=== PATIENT | female | born 2000 | race Caucasian/White ===

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

== ENCOUNTER 2018-03-13 11:02 | Emergency (ER) | payer MEDICAID, OTHER ==
[2018-03-13] MEDS ORDERED: METHYLPREDNISOLONE INJ 125 MG/2 ML SDV IV ONE (11:24)
[2018-03-13] MEDS ORDERED: DIPHENHYDRAMINE HCL 50 MG/ML VIAL IV ONE (11:24)
[2018-03-13] MEDS ORDERED: FAMOTIDINE INJ/PF 20 MG/2 ML SDV IV ONE ×2 (11:24→14:13)
[2018-03-13] MEDS ORDERED: EPINEPHRINE INJ/PF 1 MG/1 ML AMPULE IM ONE (11:25)
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
--- NOTE | 2018-03-13 14:05 | ER Document Report ---
ED General - General Mode of Arrival: Ambulatory Information source: Patient TRAVEL OUTSIDE OF THE [place] IN LAST 30 DAYS: No - General Chief Complaint: Hives Stated Complaint: RASH Time Seen by Provider: 03/13/18 11:18 Notes: Patient is a 17-year-old female presents to the emergency department complaining of hives after being bitten by a bug last night. Patient states she was at work when she noticed 2 bug bites on her bilateral hips. She states when she got home a few hours later she noticed that she broke out into hives around her waist band. Patient states that her lips, tongue and throat began to swell. At bedside patient states the hives do not itch but are still a little painful. Patient states she took Ibuprofen with little relief. Patients LMP was the 1st week in February. 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 According to records patient received a 6 day taper dose to of Prednisone 10 mg on February 25, 2018. 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 Family History: Reviewed & Not Pertinent Patient has suicidal ideation: No Patient has homicidal ideation: No Pulmonary Medical History: Reports: Hx Asthma Psychiatric Medical History: Reports: Hx Depression Past Surgical History: Reports: Hx Orthopedic Surgery - right knee due to Plica Syndrome - Immunizations Immunizations up to date: Yes Hx Diphtheria, Pertussis, Tetanus Vaccination: Yes Review of Systems - Review of Systems Constitutional: No symptoms reported EENT: See HPI Cardiovascular: No symptoms reported Respiratory: No symptoms reported Gastrointestinal: No symptoms reported Genitourinary: No symptoms reported Female Genitourinary: No symptoms reported Musculoskeletal: See HPI Skin: No symptoms reported Hematologic/Lymphatic: No symptoms reported Neurological/Psychological: No symptoms reported Physical Exam - General General appearance: Appears well, Alert In distress: None - HEENT Head: Normocephalic, Other - Forehead appears swollen. Eyes: Normal Conjunctiva: Normal Extraocular movements intact: Yes Pupils: PERRL Neck: Normal - Respiratory Respiratory status: No respiratory distress Chest status: Nontender Breath sounds: Normal Chest palpation: Normal - Cardiovascular Rhythm: Regular Heart sounds: Normal auscultation Murmur: No Friction rub: No Gallop: None auscultated - Abdominal Inspection: Normal - Back Back: Normal - Extremities General upper extremity: Normal ROM General lower extremity: Normal ROM - Neurological Neuro grossly intact: Yes Cognition: Normal Orientation: AAOx4 [place] Coma Scale Eye Opening: Spontaneous Ela Coma Scale Verbal: Oriented Ela Coma Scale Motor: Obeys Commands [place] Coma Scale Total: 15 Speech: Normal - Psychological Associated symptoms: Normal affect, Normal mood - Skin Skin Temperature: Warm Skin Moisture: Dry Skin Color: Normal Skin irregularity: other - Hives located over the bilateral hips and lower back which is tender to palpation. - Vital signs Vitals: Temp Pulse Resp BP Pulse Ox 97.6 F 77 14 122/69 99 03/13/18 11:06 03/13/18 11:06 03/13/18 11:06 03/13/18 11:06 03/13/18 11:06 - Vital Signs Vital signs: Temp Pulse Resp BP Pulse Ox 97.6 F 77 14 122/69 99 03/13/18 11:06 03/13/18 11:06 03/13/18 11:06 03/13/18 11:06 03/13/18 11:06 Discharge - Discharge Clinical Impression: Urticaria Condition: Stable Disposition: HOME, SELF-CARE Additional Instructions: Acute Allergic Reaction Your symptoms are due to an allergic reaction. Allergy can cause hives, swelling of the hands, feet, and face, hoarseness, and difficulty swallowing or breathing. It may be due to exposure to medication, animal dander, foods, infection, or insect bites. Medication is a common cause, even when prior use of this same medication caused no problems. Acute treatment may include adrenalin and antihistamines. Usually, the specific allergic agent can't be identified unless repeated episodes occur. Home treatment includes the following: (1) Stop any suspicious medications. This will be discussed with you. (2) Oral antihistamines for the next four to five days. Example, diphenhydramine (Benadryl) every four hours. (3) You may also use cimetidine (Tagamet), ranitidine (Zantac), or famotidine (Pepcid) every four hours if diphenhydramine is not controlling itching and hives. (4) Avoid aspirin until the hives completely disappear. (5) Avoid hot baths or showers until the hives are completely gone. Call the doctor if faintness, difficulty swallowing, tightness in the chest, or wheezing occurs. RETURN TO THE EMERGENCY ROOM IF ANY NEW OR WORSENING SYMPTOMS. Scribe Attestation: 03/13/18 14:21 I personally performed the services described in the documentation, reviewed and edited the documentation which was dictated to the scribe in my presence, and it accurately records my words and actions. (FERN PATRICK) Scribe Documentation - Scribe Written by Steven:: Steven Urbina, 03/13/2018 14:10 acting as scribe for :: Lucy
[2018-03-13 16:10] VITALS: BP 102/74
== END 2018-03-13 16:10 | disposition home or self-care (01) ==
LOC: ER 11:02
DX: L50.9 Urticaria, unspecified (principal); S70.262A Insect bite (nonvenomous), left hip, initial encounter; S70.261A Insect bite (nonvenomous), right hip, initial encounter; W57.XXXA Bitten or stung by nonvenomous insect and other nonvenomous arthropods, initial encounter; M67.51 Plica syndrome, right knee; J45.909 Unspecified asthma, uncomplicated; F17.210 Nicotine dependence, cigarettes, uncomplicated
CPT/HCPCS: 96376; 99283; 96372; 96374; 96375; J1200; J0171; J2930; S0028

== ENCOUNTER 2018-03-24 13:27 | Emergency (ER) | payer OTHER ==
[2018-03-24 13:37] VITALS: BP 120/67
--- NOTE | 2018-03-24 13:48 | ER Document Report ---
HPI - HPI Patient complains to provider of: Exposure to chlamydia Onset: Other Pain Level: 1 Context: 17-year-old female was told by sexual partner that he was positive for chlamydia. She has had 2 menses this month. No history of STD. No condom use. 8-month-old. No dysuria or rashes. Associated Symptoms: None Exacerbated by: Denies Relieved by: Denies Similar symptoms previously: No Recently seen / treated by doctor: No - ROS ROS below otherwise negative: Yes Systems Reviewed and Negative: Yes All other systems reviewed and negative - REPRODUCTIVE Reproductive: REPORTS: : Past Medical History - General Information source: Patient - Social History Smoking Status: Current Every Day Smoker Frequency of alcohol use: None Drug Abuse: None Lives with: Family Family History: Reviewed & Not Pertinent Pulmonary Medical History: Reports: Hx Asthma Renal/ Medical History: Denies: Hx Peritoneal Dialysis Psychiatric Medical History: Reports: Hx Depression Past Surgical History: Reports: Hx Orthopedic Surgery - 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 IN LAST 30 DAYS: No - NECK Neck: Supple - GI/ABDOMEN Gastrointestinal: Abdomen Soft, Abdomen Non-Tender, No Organomegaly - MUSCULOSKELETAL/EXTREMETIES Musculoskeletal/Extremeties: MAEW - NEURO Level of Consciousness: Awake - DERM Integumentary: No Rash Course - Re-evaluation Re-evalutation: 03/24/18 14:47 test is negative. No trichomonas. Treated for gonorrhea and chlamydia. Will treat for bacterial vaginosis are 3+ bacteria and 3+ epi is on the wet prep. No urinary tract infection. - Vital Signs Vital signs: Temp Pulse Resp BP Pulse Ox 98.6 F 100 H 16 120/67 98 03/24/18 13:36 03/24/18 13:36 03/24/18 13:36 03/24/18 13:36 03/24/18 13:36 Discharge - Discharge Clinical Impression: Chlamydia exposure, Bacterial vaginosis Condition: Good Disposition: HOME, SELF-CARE Instructions: Vaginosis, Bacterial ([facility]), Rocephin ([facility]), Azithromycin ([facility]), Metronidazole ([facility]), Gonorrhea ([facility]), Chlamydia ([facility]) Additional Instructions: Call me in 3 hours for the STD culture results at [phone] Metronidazole twice a day for bacterial vaginosis Do not drink alcohol when taking the metronidazole Return to the emergency room any concerns Prescriptions: Metronidazole 500 mg PO BID #14 tablet Forms: Return to Work
[2018-03-24] MEDS ORDERED: LIDOCAINE 1% INJ-PF (10 MG/ML) 30 ML SDV INJ ONE (14:01)
[2018-03-24] MEDS ORDERED: CEFTRIAXONE INJ 250 MG VIAL IM ONE (14:01)
[2018-03-24] MEDS ORDERED: AZITHROMYCIN 250 MG TABLET PO ONE (14:02)
[2018-03-24] MEDS ORDERED: ONDANSETRON 4 MG TAB.RAPDIS PO ONE (14:02)
[2018-03-24 14:34] LABS: APPEARANCE,URINE CLEAR; BILIRUBIN,URINE NEGATIVE (NEGATIVE); COLOR,URINE YELLOW; GLUCOSE, URINE NEGATIVE (NEGATIVE); KETONES,URINE NEGATIVE (NEGATIVE); LEUKOCYTE ESTERASE,URINE NEGATIVE (NEGATIVE); NITRITE,URINE NEGATIVE (NEGATIVE); PROTEIN,URINE NEGATIVE (NEGATIVE); UROBILINOGEN,URINE NEGATIVE mg/dL (<2.0)
[2018-03-24 14:44] LABS: T.VAGINALIS (WET MOUNT) NO TRICHOMONAS SEEN; WBCS (WET MOUNT) NO WBCS SEEN; YEAST (WET MOUNT) NO YEAST SEEN
[2018-03-24 14:45] LABS: BACTERIA (WET MOUNT) 3+ BACTERIA SEEN; EPITHELIALS (WET MOUNT) 3+ EPITHELIALS SEEN
[2018-03-24 15:53] LABS: CHLAM PCR DETECTED (NOT DETECT); GON PCR NOT DETECTED (NOT DETECT)
== END 2018-03-24 15:02 | disposition home or self-care (01) ==
LOC: ER 13:27
DX: Z20.2 Contact with and (suspected) exposure to infections with a predominantly sexual mode of transmission (principal); N76.0 Acute vaginitis; B96.89 Other specified bacterial agents as the cause of diseases classified elsewhere; F17.200 Nicotine dependence, unspecified, uncomplicated
CPT/HCPCS: 99283; 96372; 87210; 81025; 81001; 87491; 87591; S0119; J3490; J0696

== ENCOUNTER 2019-02-14 18:06 | Emergency (ER) | payer OTHER ==
--- NOTE | 2019-02-14 18:57 | ER Document Report ---
ED Headache - General Chief Complaint: Nausea/Vomiting Stated Complaint: MIGRAINE SYMPTOMS Time Seen by Provider: 02/14/19 18:47 Mode of Arrival: Ambulatory Information source: Patient TRAVEL OUTSIDE OF THE [place] IN LAST 30 DAYS: No - HPI Patient complains to provider of: Headache Notes: Patient here with complaints of intermittent headaches. The patient has a long history of migraines and states that she is been having some migraines when she is at work. She denies any headache now. She states when she has a migraine she has nausea vomiting. She states that she quit taking her chronic migraine medicine because she thought she might be . States she is intermittently had some vomiting as well. She denies any abdominal pain at this time. She states that last time she had any sort of vaginal bleeding was November 28 but was only for 1 day. She took a test a month ago that was negative but has not taken any since. She denies any blurred or loss vision at this time. No unilateral numbness, tingling, weakness. No head injury. No fevers. No neck stiffness. No chest pain or shortness of breath at this time. No other specific complaints at this time. - Related Data Allergies/Adverse Reactions: No Known Allergies Allergy (Verified 02/14/19 18:07) Past Medical History - Social History Smoking Status: Current Every Day Smoker Family History: Reviewed & Not Pertinent Patient has suicidal ideation: No Patient has homicidal ideation: No Pulmonary Medical History: Reports: Hx Asthma Renal/ Medical History: Denies: Hx Peritoneal Dialysis Psychiatric Medical History: Reports: Hx Depression Past Surgical History: Reports: Hx Orthopedic Surgery - both knees - Immunizations Immunizations up to date: Yes Hx Diphtheria, Pertussis, Tetanus Vaccination: Yes Review of Systems - Review of Systems -: Yes All other systems reviewed and negative Physical Exam - Vital signs Vitals: Temp Pulse Resp BP Pulse Ox 98.2 F 84 18 120/59 L 99 02/14/19 18:12 02/14/19 18:12 02/14/19 18:12 02/14/19 18:12 02/14/19 18:12 - Notes Notes: GENERAL: alert, cooperative, nontoxic, no distress. HEAD: normocephalic, atraumatic EYES: conjunctiva pink without discharge, no external redness or swelling. Pupils are equal, round, reactive to light. EARS: no external swelling, no external redness NOSE: atraumatic, no external swelling MOUTH/THROAT: mucous membranes moist and pink, posterior pharynx without erythema, swelling, exudate. No trismus or drooling. NECK: soft, supple, full range of motion, no meningismus. CHEST: no distress, lungs clear and equal throughout. No wheezing, rales, rhonchi. CARDIAC: regular rate and rhythm, no murmur, normal capillary refill, normal pulses. No peripheral edema noted. BACK: full range of motion, no CVA tenderness. EXTREMITIES: full range of motion of all extremities. No redness, no swelling. NEURO: alert and oriented x 3, cranial nerves II through XII are grossly intact. Upper and lower extremities are equal throughout. Normal sensation. No focal deficits, full range of motion of all extremities. normal finger to nose. PYSCH: appropriate mood, affect. Patient is cooperative. SKIN: pink, warm, dry, no rash. Course - Re-evaluation Re-evalutation: 02/14/19 20:38 Patient nontoxic-appearing with stable vitals. Patient here with multiple random complaints.'s been having some nausea and been having some intermittent headaches even though she has a history of migraine headaches. She denies any headache currently. No abdominal pain at this time. No vomiting this time. Patient has a benign exam, nonfocal neuro exam with no signs of meningitis or subarachnoid hemorrhage. Headache she is having some like her typical migraines that she has had in the past. The nausea vomiting she is having is likely secondary to the fact that the patient is . Patient will be discharged home with prescription for vitamins as well as Reglan. Instructions to follow-up with [facility] at the next available appointment. Take Tylenol as needed for pain. Follow-up sooner for worsening pain, fever, numbness, tingling, weakness, persistent vomiting, abdominal pain, or for any further concerns. The patient's emergency department workup and current diagnosis were explained to the patient and or family. Follow-up instructions were provided. Medications if prescribed were discussed. Instructions for when to return to the emergency department including specific worrisome symptoms were discussed with the patient and/or family. - Vital Signs Vital signs: Temp Pulse Resp BP Pulse Ox 98.2 F 84 18 120/59 L 99 02/14/19 18:12 02/14/19 18:12 02/14/19 18:12 02/14/19 18:12 02/14/19 18:12 - Laboratory Laboratory results interpreted by me: 02/14/19 19:51 Urine HCG, Qual POSITIVE H Discharge - Discharge Clinical Impression: Qualifiers: Weeks of gestation: unspecified Qualified Code(s): Z34.90 - Encounter for supervision of normal , unspecified, unspecified trimester Nausea & vomiting Qualifiers: Vomiting type: unspecified Vomiting Intractability: unspecified Qualified Code(s): R11.2 - Nausea with vomiting, unspecified Condition: Stable Disposition: HOME, SELF-CARE Instructions: Vomiting ([facility]), ([facility]) Additional Instructions: Take medication as prescribed. Get established with an [facility] at the next available appointment. Follow-up sooner for worsening headaches, blurred or loss vision, numbness, Nickolas, weakness, abdominal pain, persistent vomiting, vaginal bleeding, or for any further concerns. Prescriptions: Metoclopramide HCl [Reglan 10 mg Tablet] 1 tab PO Q6H PRN #15 tablet PRN Reason: Pnv No.95/Ferrous Fum/Folic AC [ Formula] 1 each PO DAILY #1 bot Forms: Smoking Cessation Education Referrals: [facility] [Provider Group] - Follow up as needed NOELLE BURKETT DO [ACTIVE STAFF] - Follow up as needed
[2019-02-14 20:43] VITALS: BP 124/68
== END 2019-02-14 20:45 | disposition home or self-care (01) ==
LOC: ER 18:06
DX: O21.9 Vomiting of pregnancy, unspecified (principal); O26.899 Other specified pregnancy related conditions, unspecified trimester; R51 Headache; O99.330 Smoking (tobacco) complicating pregnancy, unspecified trimester; F17.200 Nicotine dependence, unspecified, uncomplicated; O99.519 Diseases of the respiratory system complicating pregnancy, unspecified trimester; J45.909 Unspecified asthma, uncomplicated; Z3A.00 Weeks of gestation of pregnancy not specified; Z86.69 Personal history of other diseases of the nervous system and sense organs
CPT/HCPCS: 81025; 99283

== ENCOUNTER 2019-05-12 17:53 | Emergency (ER) | payer OTHER ==
[2019-05-12] MEDS ORDERED: ACETAMINOPHEN 325 MG TABLET PO ONE (18:27)
[2019-05-12] MEDS ORDERED: LIDOCAINE 5% (700 MG) TRANSDERMAL ADH..PATCH TP ONE (18:27)
--- NOTE | 2019-05-12 18:29 | ER Document Report ---
ED Medical Screen (RME) - General Chief Complaint: Low Back Pain Stated Complaint: BACK PAIN Time Seen by Provider: 05/12/19 18:07 Mode of Arrival: Ambulatory Information source: Patient Notes: Patient presents complaining of low back pain for the past 2 months that will radiate into the left hip area. Patient denies any other injury. Patient states that she is currently although is uncertain how far along she may be as she has not had an ultrasound during her . Patient thinks she may be about 20 weeks . Patient denies any vaginal bleeding or discharge. Patient denies any urinary symptoms. I have greeted and performed a rapid initial assessment of this patient. A comprehensive ED assessment and evaluation of the patient, analysis of test results and completion of the medical decision making process will be conducted by additional ED providers. TRAVEL OUTSIDE OF THE [place] IN LAST 30 DAYS: No - Related Data Allergies/Adverse Reactions: No Known Allergies Allergy (Verified 05/12/19 17:54) Past Medical History - Social History Chew tobacco use (# tins/day): No Frequency of alcohol use: None Drug Abuse: None Pulmonary Medical History: Reports: Hx Asthma Renal/ Medical History: Denies: Hx Peritoneal Dialysis Psychiatric Medical History: Reports: Hx Depression Past Surgical History: Reports: Hx Orthopedic Surgery - both knees - Immunizations Immunizations up to date: Yes Hx Diphtheria, Pertussis, Tetanus Vaccination: Yes History of Influenza Vaccine for 06/2017 - 11/2017 Season: Yes Physical Exam - Vital signs Vitals: Temp Pulse Resp BP Pulse Ox 97.9 F 82 14 112/62 100 05/12/19 17:56 05/12/19 17:56 05/12/19 17:56 05/12/19 17:56 05/12/19 17:56 - Back Back: Tender - Lumbar paraspinal tenderness, left SI joint tenderness Course - Vital Signs Vital signs: Temp Pulse Resp BP Pulse Ox 97.9 F 82 14 112/62 100 05/12/19 17:56 05/12/19 17:56 05/12/19 17:56 05/12/19 17:56 05/12/19 17:56
--- NOTE | 2019-05-12 19:00 | ER Document Report ---
HPI - HPI Patient complains to provider of: left low back pain, Time Seen by Provider: 05/12/19 18:07 Onset/Duration: Gradual, Intermittent Quality of pain: Achy Severity: Mild Pain Level: 2 Context: 18 yr old female patient, with the listed pmh, who is approx 20 wks she thinks, here for left lower back pain that radiates to her left hip area inter mittently x 2 months. hx of some "nerve damage" when she had her last child that caused this issue per pt and it intermittently flares up. she hasn't had a confirmed IUP. denies any previous other complications during her last . she is . LMP in December 2018 some time. she isn't sure of the exact date. no fall or trauma. no abd pain. no numbness, tingling, weakness, saddle anesthesia, or incontinence. No abdominal or spinal surgeries. No history of ovarian cysts, fibroids, endometriosis, or renal stones. Normal bowel movements. No UTI symptoms. No URI symptoms. No recent antibiotics or steroids. No history of diabetes. No vaginal discharge/bleeding/complaints/lesions or concerns for STDs and does not want a pelvic exam. Hasn't taken anything for her symptoms. No excessive NSAID use, Tylenol use, or EtOH. pt able to walk. pain worse with movement and palpation. better with rest. she has her initial apt [facility] in [place], [place], in 2 days. no other associated sx. Exacerbated by: Movement Relieved by: Remaining still Similar symptoms previously: Yes Recently seen / treated by doctor: No - ROS Systems Reviewed and Negative: Yes All other systems reviewed and negative - to include 10 systems, unless mentioned in the hpi Past Medical History - General Information source: Patient - Social History Smoking Status: Never Smoker Chew tobacco use (# tins/day): No Frequency of alcohol use: None Drug Abuse: None Lives with: Spouse/Significant other Family History: Reviewed & Not Pertinent Patient has suicidal ideation: No Patient has homicidal ideation: No Pulmonary Medical History: Reports: Hx Asthma Endocrine Medical History: Reports: None Renal/ Medical History: Denies: Hx Peritoneal Dialysis Psychiatric Medical History: Reports: Hx Depression Past Surgical History: Reports: Hx Orthopedic Surgery - both knees-arthroscopy - Immunizations Immunizations up to date: Yes Hx Diphtheria, Pertussis, Tetanus Vaccination: Yes Vertical Provider Document - CONSTITUTIONAL Agree With Documented VS: Yes Exam Limitations: No Limitations Notes: >>>> PHYSICAL_EXAM: GENERAL_APPEARANCE: well_nourished, alert, cooperative, no_acute_distress, no_obvious_discomfort. Pleasant, thin young white female, smiling, speaking in full sentences, in no sign of pain or resp distress, easily sitting up, significant other at bedside VITALS: reviewed, see vital signs table. HEAD: normocephalic, atraumatic. no rosen signs. no raccoon eyes. EYES: PERRL, EOMI, (-)scleral icterus. NOSE: no_nasal_discharge. MOUTH: (-)decreased moisture. THROAT: no_tonsilar_inflammation/hypertrophy/exudate NECK: supple, no_neck_tenderness, full rom. full strength. no meningeal signs. BACK: no midline_back_tenderness. no step offs or deformities. mild ttp of the left lower paralumbar musculature, spasm noted. palpation here reproduces pts back pain exactly. no overlying skin changes. CHEST_WALL: no_chest_tenderness. LUNGS: no_wheezing, (-)accessory muscle use, good air exchange bilateral. HEART: normal_rate, normal_rhythm, ABDOMEN: normal_BS, soft, abdomen-diffuse, non-tender, gravid abd-uterus palpated right below the umbilicus, (-)guarding, (-)rebound, no distension or peritoneal signs. neg murphys. neg mcburneys. no cva tenderness. neg heel sitrke. neg obturator. neg psoas. neg rovsign. PELVIC: deferred by pt RECTAL: deferred; however, no sign of loss of bowel or bladder or soiling of clothing EXTREMITIES: strength 5/5 in all_extremities, good pulses in all_extremities, no_edema, no_swelling\\tenderness. full rom with mild pain on left hip flexion and extension. normal gait. good hand wall and floor tiler. brisk cap refill. neg aryan sign. neg justin squeeze. no foot drop SKIN: warm, dry, good_color, no_rash. no grossly visible overlying skin changes to suggest trauma NEURO: motor_intact, sensory_intact. cranial nerves 2-12 intact, cerebellar fxn intact MENTAL_STATUS: normal_affect, speech_clear, oriented_X_3, responds_appropriately to questions. - INFECTION CONTROL TRAVEL OUTSIDE OF THE [place] IN LAST 30 DAYS: No Course - Re-evaluation Re-evalutation: pt here for intermittent low back pain and likely left sided sciatica x 2mths. sx improved with tx listed. she is also . labs unremarkable other than a mild white count, and blood type rH neg-advised if she had any bleeding she needed rhogam then and also peripartumly. pt is and already familiar with this. denies any bleeding currently. she hasn't had an US to confirm an IUP or any care this . no fall or trauma and pt is so no xrays were done of her back. she is able to walk. neurononfocal. no abd pain, fevers, vom, vag complaints, or uti sx. pain reproducible on exam and likely musculoskeletal. no sign of cauda equina, spinal cord involvement or central cord syndrome. transvag OB US showed a living IUP at 19w 2d with fht 145 bpm and was otherwise neg per rad and reviewed by myself. pt informed of her findings. advised lidocaine patches and tylenol prn any pain. advised sx care. ice/heat to her back. she has no abd ttp on exam and is well appearing. she [facility] in [place] in 2 days, advised her to keep this apt. cont prenatals. gentle stretches. pelvic rest. no heavy lifting. advised to f/u with obgyn in 1-2 days. return for any worsening symptoms. vss. well appearing. satting well on ra. neurononfocal. pt understands and agrees to plan. On reexam, pt improved with tx listed. remained stable. nontoxic. well appearing. pain controlled. tolerating po. requesting to go home. serial abd exams remain benign. neurononfocal. Documentation achieved through voice recording which my lead to some occasional accidental typographical errors. Extensive efforts have been made to proof read documentation to make sure these are the least as possible. Category Date Time Status U/S OB 14+ TRNABD 1GES W/O DOP [US] Stat Exams 05/12/19 18:26 Completed ANTIBODY SCREEN [BBK] Stat Lab 05/12/19 19:02 Completed CBC WITH DIFF [HEME] Stat Lab 05/12/19 19:02 Completed CMP [COMPREHENSIVE METABOLIC PANEL] [CHEM] Stat Lab 05/12/19 19:02 Completed HCG QUANTITATIVE [CHEM] Stat Lab 05/12/19 19:02 Completed LIPASE [CHEM] Stat Lab 05/12/19 19:02 Completed RHOGAM WORKUP [BBK] Stat Lab 05/12/19 19:02 Completed URINALYSIS [URIN] Stat Lab 05/12/19 19:15 Completed Acetaminophen [Tylenol 325 mg Tablet] Med 05/12/19 18:27 Discontinued 975 mg PO NOW ONE Lidocaine [Lidoderm 5% (700 mg) Transdermal Patch] Med 05/12/19 18:27 Discontinued 1 patch TP NOW ONE - Vital Signs Vital signs: Temp Pulse Resp BP Pulse Ox 97.9 F 82 14 112/62 100 05/12/19 17:56 05/12/19 17:56 05/12/19 17:56 05/12/19 17:56 05/12/19 17:56 Temp Pulse Resp BP Pulse Ox 05/12/19 20:29 98.7 F 71 15 105/55 L 100 05/12/19 17:56 97.9 F 82 14 112/62 100 - Laboratory Result Diagrams: 05/12/19 19:02 05/12/19 19:02 Laboratory results interpreted by me: Labs- Entire Visit 05/12/19 05/12/19 05/12/19 19:02 19:02 19:02 WBC 11.9 H RBC 4.34 Hgb 13.1 Hct 38.8 MCV 90 MCH 30.3 MCHC 33.8 RDW 13.1 Plt Count 244 Seg Neutrophils % 80.9 H Lymphocytes % 13.1 Monocytes % 5.4 Eosinophils % 0.2 Basophils % 0.4 Absolute Neutrophils 9.6 H Absolute Lymphocytes 1.6 Absolute Monocytes 0.6 Absolute Eosinophils 0.0 Absolute Basophils 0.0 Sodium 138.0 Potassium 4.0 Chloride 102 Carbon Dioxide 27 Anion Gap 9 BUN 7 Creatinine 0.53 Est GFR ( Amer) > 60 Est GFR (Non-Af Amer) > 60 Glucose 57 L Calcium 9.9 Total Bilirubin 0.3 Direct Bilirubin 0.1 Neonat Total Bilirubin Not Reportable Neonat Direct Bilirubin Not Reportable Neonat Indirect Bili Not Reportable AST 20 ALT 11 Alkaline Phosphatase 58 Total Protein 7.6 Albumin 4.4 Lipase 46.0 Beta HCG, Quant 70718.00 H Total Beta HCG POSITIVE Urine Color Urine Appearance Urine pH Ur Specific [place] Urine Protein Urine Glucose (UA) Urine Ketones Urine Blood Urine Nitrite Urine Bilirubin Urine Urobilinogen Ur Leukocyte Esterase Urine WBC (Auto) Urine RBC (Auto) Urine Bacteria (Auto) Squamous Epi Cells Auto Urine Mucus (Auto) Urine Ascorbic Acid Blood Type A NEGATIVE Antibody Screen NEGATIVE Rhogam Indicated RHOGAM NOT REQUESTED 05/12/19 19:15 WBC RBC Hgb Hct MCV MCH MCHC RDW Plt Count Seg Neutrophils % Lymphocytes % Monocytes % Eosinophils % Basophils % Absolute Neutrophils Absolute Lymphocytes Absolute Monocytes Absolute Eosinophils Absolute Basophils Sodium Potassium Chloride Carbon Dioxide Anion Gap BUN Creatinine Est GFR ( Amer) Est GFR (Non-Af Amer) Glucose Calcium Total Bilirubin Direct Bilirubin Neonat Total Bilirubin Neonat Direct Bilirubin Neonat Indirect Bili AST ALT Alkaline Phosphatase Total Protein Albumin Lipase Beta HCG, Quant Total Beta HCG Urine Color YELLOW Urine Appearance CLEAR Urine pH 8.0 Ur Specific [place] 1.009 Urine Protein NEGATIVE Urine Glucose (UA) NEGATIVE Urine Ketones NEGATIVE Urine Blood NEGATIVE Urine Nitrite NEGATIVE Urine Bilirubin NEGATIVE Urine Urobilinogen NEGATIVE Ur Leukocyte Esterase TRACE H Urine WBC (Auto) 1 Urine RBC (Auto) 1 Urine Bacteria (Auto) TRACE Squamous Epi Cells Auto 6 Urine Mucus (Auto) RARE Urine Ascorbic Acid NEGATIVE Blood Type Antibody Screen Rhogam Indicated - Diagnostic Test Radiology reviewed: Image reviewed, Reports reviewed Radiology results interpreted by me: Obstetrics Ultrasound 05/12/19 18:26 IMPRESSION: LIVING INTRAUTERINE . ESTIMATED GESTATIONAL AGE 19 weeks 2 days Limited Ob ultrasound. No anatomic assessment. Trimester of : Second trimester - 13 weeks 1 day to 27 weeks 6 days. Discharge - Discharge Clinical Impression: Low back pain with left-sided sciatica Qualifiers: Chronicity: acute Back pain laterality: left Qualified Code(s): M54.42 - Lumbago with sciatica, left side Qualifiers: Weeks of gestation: 19 weeks Qualified Code(s): Z3A.19 - 19 weeks gestation of Leukocytosis Qualifiers: Leukocytosis type: unspecified Qualified Code(s): D72.829 - Elevated white blood cell count, unspecified Rh negative status during Qualifiers: Trimester: unspecified trimester Qualified Code(s): O26.899 - Other specified related conditions, unspecified trimester; Z67.91 - Unspecified blood type, Rh negative Condition: Good Disposition: HOME, SELF-CARE Instructions: Low Back Pain ([facility]), ([facility]), Sciatica ([facility]), Warm Packs ([facility]) Additional Instructions: Follow-up with obgyn in 1 to 2 days. Return for any worsening symptoms. pelvic rest. no heavy lifting. continue vitamins. ice/heat to your back. tylenol and lidocaine patches for any pain. Prescriptions: Lidocaine [Lidocaine Pain Relief] 1 each TP DAILY PRN #10 adh..patch PRN Reason: For Pain
[2019-05-12 19:13] LABS: ABSOLUTE LYMPHOCYTES (AUTO) 1.6 10^3/uL (0.5-4.7); ABSOLUTE MONOCYTES (AUTO) 0.6 10^3/uL (0.1-1.4); ABSOLUTE NEUT (AUTO) 9.6 10^3/uL (1.7-8.2); BASOPHILS % (AUTO) 0.4 % (0-2); EOSINOPHILS % (AUTO) 0.2 % (0-6); HEMATOCRIT 38.8 % (36.0-47.0); HEMOGLOBIN 13.1 g/dL (12.0-15.5); LYMPHOCYTES % (AUTO) 13.1 % (13-45); MEAN CORPUSCULAR HEMOGLOBIN 30.3 pg (27.0-33.4); MEAN CORPUSCULAR HGB CONC 33.8 g/dL (32.0-36.0); MEAN CORPUSCULAR VOLUME 90 fl (80-97); MONOCYTES % (AUTO) 5.4 % (3-13); PLATELET COUNT 244 10^3/uL (150-450); RED BLOOD COUNT 4.34 10^6/uL (3.72-5.28); RED CELL DISTRIBUTION WIDTH 13.1 % (11.5-14.0); SEGMENTED NEUTROPHILS % (AUTO) 80.9 % (42-78); TOTAL CELLS COUNTED % (AUTO) 100 %; WHITE BLOOD COUNT 11.9 10^3/uL (4.0-10.5)
--- NOTE | 2019-05-12 19:18 | RADIOLOGY REPORT (SQ) ---
EXAM DESCRIPTION: U/S OB 14+ TRNABD 1GES W/O DOP COMPLETED DATE/TIME: 05/12/2019 7:05 pm REASON FOR STUDY: low back pain COMPARISON: None. TECHNIQUE: Static and Dynamic grayscale imaging performed of gravid uterus using transabdominal appr oach. Additional selected color Doppler and spectral images recorded. All stored on PACS. LIMITATIONS: Limited study. No anatomic assessment. FINDINGS: FETUSES SEEN:1 EGA: 19 weeks 2 days Calculated using BPD,FL,HC,AC documented on images. No discrepancy with clinica l dates. MELISSA: 10/04/2019 EFW: 285 grams PERCENTILE: Not applicable. Fetus less than or equal to 20 weeks gestation. GASPER: Adequate PLACENTA: Fundal PRESENTATION: Cephalic. ANATOMY: HEART RATE: 145 beats per minute. MATERNAL ADNEXA: Maternal ovaries not visualized. CERVICAL LENGTH: 3.8 cm Closed. OTHER: No other significant finding. IMPRESSION: LIVING INTRAUTERINE . ESTIMATED GESTATIONAL AGE 19 weeks 2 days Limited Ob ultrasound. No anatomic assessment. Trimester of : Second trimester - 13 weeks 1 day to 27 weeks 6 days. TECHNICAL DOCUMENTATION: JOB ID: [id number] [employer]- All Rights Reserved Reading location - IP/workstation name: [email or web address]
[2019-05-12 19:31] LABS: ALBUMIN 4.4 g/dL (3.5-5.0); ALKALINE PHOSPHATASE 58 U/L (38-126); ANION GAP 9 (5-19); ASPARTATE AMINO TRANSFERASE 20 U/L (14-36); BILIRUBIN,DIRECT 0.1 mg/dL (0.0-0.4); BILIRUBIN,TOTAL 0.3 mg/dL (0.2-1.3); BLOOD UREA NITROGEN 7 mg/dL (7-20); CALCIUM 9.9 mg/dL (8.4-10.2); CARBON DIOXIDE 27 mmol/L (22-30); CHLORIDE 102 mmol/L (98-107); TOTAL PROTEIN 7.6 g/dL (6.3-8.2)
[2019-05-12 19:35] LABS: GLUCOSE 57 mg/dL (75-110)
[2019-05-12 19:51] LABS: APPEARANCE,URINE CLEAR; BILIRUBIN,URINE NEGATIVE (NEGATIVE); COLOR,URINE YELLOW; GLUCOSE, URINE NEGATIVE (NEGATIVE); KETONES,URINE NEGATIVE (NEGATIVE); LEUKOCYTE ESTERASE,URINE TRACE (NEGATIVE); NITRITE,URINE NEGATIVE (NEGATIVE); PROTEIN,URINE NEGATIVE (NEGATIVE); URINE SPECIFIC GRAVITY 1.009; UROBILINOGEN,URINE NEGATIVE mg/dL (<2.0)
[2019-05-12 20:30] VITALS: BP 105/55
== END 2019-05-12 20:32 | disposition home or self-care (01) ==
LOC: ER 17:53
DX: O99.89 Other specified diseases and conditions complicating pregnancy, childbirth and the puerperium (principal); M54.42 Lumbago with sciatica, left side; M62.830 Muscle spasm of back; O99.512 Diseases of the respiratory system complicating pregnancy, second trimester; J45.909 Unspecified asthma, uncomplicated; O99.112 Other diseases of the blood and blood-forming organs and certain disorders involving the immune mechanism complicating pregnancy, second trimester; D72.829 Elevated white blood cell count, unspecified; Z67.91 Unspecified blood type, Rh negative; Z3A.19 19 weeks gestation of pregnancy
CPT/HCPCS: 36415; 76805; 80053; 81001; 83690; 84702; 85025; 86850; 86900; 86901; 99284

== ENCOUNTER 2019-07-29 12:25 | Outpatient (CLI) | payer OTHER ==
[2019-07-29 13:24] LABS: BACTERIA (WET MOUNT) 3+ BACTERIA SEEN; EPITHELIALS (WET MOUNT) 3+ EPITHELIALS SEEN; T.VAGINALIS (WET MOUNT) NO TRICHOMONAS SEEN; WBCS (WET MOUNT) RARE WBCS SEEN; YEAST (WET MOUNT) NO YEAST SEEN
--- NOTE | 2019-07-29 13:31 | RADIOLOGY REPORT (SQ) ---
EXAM DESCRIPTION: U/S OB LIMITED COMPLETED DATE/TIME: 07/29/2019 1:21 pm REASON FOR STUDY: cervical length, pres, growth, fluid,placenta COMPARISON: 05/12/2019 TECHNIQUE: Limited transabdominal grayscale ultrasound for evaluation of specific requested obstetri pedro luis parameters. LIMITATIONS: None. FINDINGS: CERVICAL LENGTH: 3.1 cm. Closed. GASPER: 11.4 cm. FHR: 130 beats per minute. PRESENTATION: Breech PLACENTA: Posterior without gross abruption or previa. ANATOMY: Not assessed OTHER: No other significant findings. IMPRESSION: LIMITED OBSTETRICAL ULTRASOUND WITH MEASURED PARAMETERS DELINEATED ABOVE. Trimester of : Third trimester - 28 weeks to delivery. TECHNICAL DOCUMENTATION: JOB ID: [id number] [employer]- All Rights Reserved Reading location - IP/workstation name: [email or web address]
[2019-07-29 13:40] LABS: APPEARANCE,URINE CLEAR; BILIRUBIN,URINE NEGATIVE (NEGATIVE); COLOR,URINE YELLOW; GLUCOSE, URINE NEGATIVE (NEGATIVE); KETONES,URINE NEGATIVE (NEGATIVE); LEUKOCYTE ESTERASE,URINE NEGATIVE (NEGATIVE); NITRITE,URINE NEGATIVE (NEGATIVE); PROTEIN,URINE NEGATIVE (NEGATIVE); URINE SPECIFIC GRAVITY 1.016; UROBILINOGEN,URINE NEGATIVE mg/dL (<2.0)
[2019-07-29 13:48] LABS: ADD MANUAL MICROSCOPIC YES
[2019-07-29 13:49] LABS: WBC,URINE 0-1 /HPF
[2019-07-29 14:00] LABS: URINE AMPHETAMINES SCREEN NEGATIVE; URINE BARBITURATES SCREEN NEGATIVE; URINE BENZODIAZEPINES SCREEN NEGATIVE; URINE COCAINE SCREEN NEGATIVE; URINE METHADONE SCREEN NEGATIVE; URINE PHENCYCLIDINE SCREEN NEGATIVE
[2019-07-29 14:03] LABS: URINE MARIJUANA (THC) SCREEN UNCONFIRMED POSITIVE
[2019-07-29 14:50] LABS: CHLAM PCR NOT DETECTED (NOT DETECT)
== END 2019-07-29 14:01 | disposition home or self-care (01) ==
LOC: LC 12:25
PROVIDERS: ATTEND Student in an Organized Health Care Education/Training Program
PROC: 4A1HXCZ Monitoring of Products of Conception, Cardiac Rate, External Approach (ICD-10-PCS; principal; 2019-07-29)
DX: O47.03 False labor before 37 completed weeks of gestation, third trimester (principal); Z3A.30 30 weeks gestation of pregnancy
CPT/HCPCS: 76815; 80307; 81001; 87210; 87491; 87591

== ENCOUNTER 2019-09-30 21:40 | Inpatient (IN) | payer OTHER, MEDICAID ==
--- NOTE | 2019-09-30 21:45 | Admission Physical ---
Datetime Report Generated by CPN: 09/30/2019 21:45 CURRENT ADMISSION Chief Complaint: Uterine Contractions; Suspected Ruptured Membranes; Other Chief Complaint Other: Patient indicates her had ROM at home around 2100 pm. En route to hospital infant delivered in the car at 2111. ALLERGIES Medication Allergies: No Medication Allergies: No Known Allergies (05/12/2019) Latex: No Latex Allergies OBSTETRICAL HISTORY EDC: 10/05/2019 00:00 : 2 Para: 1 Term: 1 : 0 SAB: 0 IAB: 0 Ectopic: 0 Livin Cesareans: 0 VBACs: 0 Multiple Births: 0 PHYSICAL EXAM General: Normal HEENT: Normal Neurologic: Normal Thyroid: Normal Heart: Normal Lungs: Normal Breast: Normal Back: Normal Abdomen: Normal Genitourinary Exam: Normal Extremities: Normal DTRs: Normal Pelvic Type: Adequate FETUS A EGA: 39.2 Admit Comment: I arrived to patient's private vehicle parked in front of hospital lob. was wrapped in blanket's and being kept warm on mother's chest. Patient indicated some concern as baby delivered rapidly and did make some contact with the car floorboard. INFORMED CONSENT Signature: with User ID: [email or web address]
[2019-09-30] MEDS ORDERED: RINGERS SOLUTION,LACTATED 1,000 ML IV PRN (21:46)
[2019-09-30] MEDS ORDERED: PROMETHAZINE HCL 25 MG TABLET PO PRN (21:50)
[2019-09-30] MEDS ORDERED: DIPHENHYDRAMINE HCL 25 MG CAPSULE PO PRN (21:50)
[2019-09-30] MEDS ORDERED: DIBUCAINE 1% OINTMENT 28 GM TP PRN (21:50)
[2019-09-30] MEDS ORDERED: PSEUDOEPHEDRINE HCL 30 MG TABLET PO PRN (21:50)
[2019-09-30] MEDS ORDERED: ZOLPIDEM TARTRATE 5 MG TABLET PO PRN (21:50)
[2019-09-30] MEDS ORDERED: MAGNESIUM HYDROXIDE SUSP 30 ML UDCUP PO PRN (21:50)
[2019-09-30] MEDS ORDERED: PROMETHAZINE HCL 25 MG SUPP.RECT PR PRN (21:50)
[2019-09-30] MEDS ORDERED: PROMETHAZINE HCL INJ 25 MG/1 ML VIAL IV PRN (21:50)
[2019-09-30] MEDS ORDERED: GLYCERIN/WITCH HAZEL LEAF 1 EACH MED..WIPE TP PRN (21:50)
[2019-09-30] MEDS ORDERED: NA PHOS,M-B/NA PHOS,DI-BA (ADULT) 133 ML ENEMA PR PRN (21:50)
[2019-09-30] MEDS ORDERED: ACETAMINOPHEN WITH CODEINE #3 TABLET PO PRN ×2 (21:50)
[2019-09-30] MEDS ORDERED: ACETAMINOPHEN 650 MG SUPP.RECT PR PRN (21:50)
[2019-09-30] MEDS ORDERED: DIPH/PERTUSS(ACELL)/TETANUS VAC/PF 0.5 ML SYR (>=10YO) IM PRN (21:50)
[2019-09-30] MEDS ORDERED: OXYTOCIN/NORMAL SALINE 20 UNIT/1,000 ML RTUINJ IV PRN (21:50)
[2019-09-30] MEDS ORDERED: MEASLES,MUMPS&RUBELLA VACC/PF 0.5 ML VIAL SUBCUT PRN (21:50)
[2019-09-30] MEDS ORDERED: BENZOCAINE/MENTHOL AEROSOL SPRAY 56 ML TOP PRN (21:50)
[2019-09-30 22:29] LABS: ABSOLUTE BASOPHILS # (AUTO) 0.1 10^3/uL (0.0-0.2); ABSOLUTE LYMPHOCYTES (AUTO) 1.5 10^3/uL (0.5-4.7); ABSOLUTE MONOCYTES (AUTO) 0.7 10^3/uL (0.1-1.4); EOSINOPHILS % (AUTO) 0.3 % (0-6); HEMATOCRIT 38.5 % (36.0-47.0); HEMOGLOBIN 12.8 g/dL (12.0-15.5); LYMPHOCYTES % (AUTO) 13.6 % (13-45); MEAN CORPUSCULAR HEMOGLOBIN 28.7 pg (27.0-33.4); MEAN CORPUSCULAR HGB CONC 33.2 g/dL (32.0-36.0); MEAN CORPUSCULAR VOLUME 87 fl (80-97); MONOCYTES % (AUTO) 5.9 % (3-13); PLATELET COUNT 233 10^3/uL (150-450); RED BLOOD COUNT 4.44 10^6/uL (3.72-5.28); RED CELL DISTRIBUTION WIDTH 14.6 % (11.5-14.0); SEGMENTED NEUTROPHILS % (AUTO) 79.2 % (42-78); TOTAL CELLS COUNTED % (AUTO) 100 %; WHITE BLOOD COUNT 11.4 10^3/uL (4.0-10.5)
[2019-09-30] MEDS ORDERED: OXYTOCIN/NORMAL SALINE 20 UNIT/1,000 ML RTUINJ ONE (23:17)
[2019-09-30 23:46] LABS: APPEARANCE,URINE CLOUDY; BILIRUBIN,URINE NEGATIVE (NEGATIVE); COLOR,URINE RED; GLUCOSE, URINE NEGATIVE (NEGATIVE); KETONES,URINE TRACE mg/dL (NEGATIVE); LEUKOCYTE ESTERASE,URINE NEGATIVE (NEGATIVE); NITRITE,URINE NEGATIVE (NEGATIVE); PROTEIN,URINE 100 mg/dL (NEGATIVE); URINE SPECIFIC GRAVITY 1.015; UROBILINOGEN,URINE NEGATIVE mg/dL (<2.0)
[2019-10-01 00:05] LABS: URINE AMPHETAMINES SCREEN NEGATIVE; URINE BARBITURATES SCREEN NEGATIVE; URINE BENZODIAZEPINES SCREEN NEGATIVE; URINE COCAINE SCREEN NEGATIVE; URINE METHADONE SCREEN NEGATIVE; URINE PHENCYCLIDINE SCREEN NEGATIVE
[2019-10-01 00:11] LABS: URINE MARIJUANA (THC) SCREEN UNCONFIRMED POSITIVE
[2019-10-01] MEDS: FAMOTIDINE 20 MG TABLET PO SCH ×3 (00:22→21:51)
[2019-10-01] MEDS: IBUPROFEN 800 MG TABLET PO SCH ×4 (00:22→21:51)
[2019-10-01 01:14] LABS: CHLAM PCR NOT DETECTED (NOT DETECT)
--- NOTE | 2019-10-01 01:14 | Delivery Summary ---
Del Sum A-C Datetime Report Generated by CPN: 10/01/2019 01:13 DELIVERY PERSONNEL DELIVERY PERSONNEL: [id number] Delivery Doctor:: Valorie De La Garza MD Labor and Delivery Nurse:: Jolie iRvera RNindustrial diamond polisher Nurse:: Kayla Gutierrez RN MATERNAL INFORMATION Delivery Anesthesia: None Medications After Delivery: Pitocin Bolus-Please Comment; Pitocin Drip 20 Units/1000ml NSS Estimated Blood Loss (ml): 100 Delivery QBL: 75 Delivery QBL Comment: unable to perform, patient delivered in [facility], [place] per dr. de la garza is 100ml Maternal Complications: Precipitous Labor (<3hrs) Provider Comments: please see H_P for further detatils as patient delivered in her private vehicle en route to hospital. LABOR SUMMARY EDC: 10/05/2019 00:00 No. Babies in Womb: 1 Attempted: No Labor Anesthesia: None LABOR INFORMATION Reason for Induction: Not Applicable Onset of Labor: 09/30/2019 19:00 Oxytocin: N/A Group B Beta Strep: unknown Antibiotics # of Doses: 0 Steroids Given: None Reason Steroids Not Administered: Not Applicable MEMBRANES Membranes Rupture Method: Spontaneous Rupture of Membranes: 09/30/2019 19:00 Length of Rupture (hr): 2.18 Amniotic Fluid Color: Clear Amniotic Fluid Odor: Normal STAGES OF LABOR Stage 3 hr: 0 Stage 3 min: 13 Total Time in Labor hr: 2 Total Time in Labor min: 24 VAGINAL DELIVERY Episiotomy: None Laceration #1: None Sponge Count Correct: N/A Sharps Count Correct: N/A CSECTION DELIVERY Primary Indication: N/A Secondary Indication: N/A CSection Incidence: N/A Labor: N/A Elective: N/A CSection Incision: N/A BABY A INFORMATION Infant Delivery Date/Time: 09/30/2019 21:11 Method of Delivery: Vaginal Born in Route : Yes : N/A Forceps: N/A Vacuum Extraction: N/A Shoulder Dystocia : No PRESENTATION/POSITION BABY A Presentation: Cephalic Cephalic Presentation: Vertex Breech Presentation: N/A PLACENTA INFORMATION BABY A Placenta Delivery Time : 09/30/2019 21:24 Placenta Method of Delivery: Spontaneous Placenta Status: Delivered INFORMATION BABY A Gestational Age at Delivery: 39.2 Gestational Status: Full Term- 39- 40.6 Weeks Outcome : Liveborn Infant Condition : Stable Sex: Female IDENTIFICATION BABY A Infant Verification Date/Time: 09/30/2019 21:54 ID Band Number: [id number] Mother's Name Verified: Yes RN Verifying : L Parlor [employer] PORT[employer] CONSULTANT/D [place] RN WEIGHT/LENGTH BABY A Infant Birthweight (gm): 3305 Weight (lb): 7 Infant Weight (oz): 5 Length (in): 19.50 Infant Length (cm): 49.53 CORD INFORMATION BABY A No. Cord Vessels: 3 Cord Blood Taken: No-Annotate no blood available, delivered en route Infant Suction: None ASSESSMENT BABY A Skin to Skin: Yes Skin to Skin Time (min): 60 BABY B INFORMATION : N/A SIGNATURES Signature: with User ID: Joseph
--- NOTE | 2019-10-01 01:21 | Warning Signs in Babies ---
VOD Warning Signs Datetime Report Generated by [facility]: 10/01/2019 01:21 VOD#608 -Warning Signs in Babies: Needs to be viewed. (10/01/2019 00:02:Jolie Rivera RN)
[2019-10-01] MEDS ORDERED: INFLUENZA QUAD (6MOS+) 2019-20 VAC 0.5 ML SYR IM ONE (04:46)
[2019-10-01 06:48] LABS: HEMATOCRIT 30.7 % (36.0-47.0); HEMOGLOBIN 10.5 g/dL (12.0-15.5); MEAN CORPUSCULAR HEMOGLOBIN 28.9 pg (27.0-33.4); MEAN CORPUSCULAR HGB CONC 34.1 g/dL (32.0-36.0); MEAN CORPUSCULAR VOLUME 85 fl (80-97); PLATELET COUNT 192 10^3/uL (150-450); RED BLOOD COUNT 3.62 10^6/uL (3.72-5.28); RED CELL DISTRIBUTION WIDTH 14.1 % (11.5-14.0); WHITE BLOOD COUNT 13.8 10^3/uL (4.0-10.5)
[2019-10-01] MEDS: PRENATAL VITAMIN W DHA CAPSULE PO SCH (09:18)
[2019-10-01] MEDS: DOCUSATE SODIUM 100 MG CAPSULE PO SCH ×2 (09:18→17:33)
[2019-10-01] MEDS: FERROUS SULFATE 325 MG TABLET PO SCH ×2 (09:18→17:33)
[2019-10-01] MEDS: SENNOSIDES/DOCUSATE 8.6-50 MG 1 EACH TABLET PO SCH (09:18)
--- NOTE | 2019-10-01 11:04 | PDOC PROGRESS REPORT ---
Subjective-OB Progress Note for:: 10/01/19 Subjective: Pt doing well, no concerns. She reports light bleeding, reg diet and voiding without difficulty. She is concerned about getting Rhogam, states she didn' t get it at 28 weeks, has multiple reasons for not getting adequate PNC. Baby's blood type is Rh neg. Physical Exam (OB) Vital Signs: Temp Pulse Resp BP Pulse Ox 98.4 F 53 L 16 97/53 L 99 10/01/19 07:34 10/01/19 07:34 10/01/19 07:34 10/01/19 07:34 10/01/19 07:34 Intake & Output 09/30/19 10/01/19 10/02/19 06:59 06:59 06:59 Intake Total 400 Balance 400 - PIH/Pre-Eclampsia Clonus: Negative Headache: Absent Epigastric Pain: No Visual Changes: No - Lochia Lochia Amount: Scant < 10 ml Lochia Color: Rubra/Red - Abdomen Description: Tender Hernia Present: No Fundal Description: Firm, Midline Fundal Height: u/u - u/2 Objective-Diagnostic Laboratory: 10/01/19 06:24 09/30/19 09/30/19 09/30/19 22:00 22:00 23:10 WBC 11.4 H RBC 4.44 Hgb 12.8 Hct 38.5 MCV 87 MCH 28.7 MCHC 33.2 RDW 14.6 H Plt Count 233 Seg Neutrophils % 79.2 H Urine Color RED Urine Appearance CLOUDY Urine pH 8.0 Ur Specific [place] 1.015 Urine Protein 100 H Urine Glucose (UA) NEGATIVE Urine Ketones TRACE H Urine Blood LARGE H Urine Nitrite NEGATIVE Ur Leukocyte Esterase NEGATIVE Blood Type Cancelled Antibody Screen Cancelled 09/30/19 10/01/19 23:44 06:24 WBC 13.8 H RBC 3.62 L Hgb 10.5 L D Hct 30.7 L MCV 85 MCH 28.9 MCHC 34.1 RDW 14.1 H Plt Count 192 Seg Neutrophils % Urine Color Urine Appearance Urine pH Ur Specific [place] Urine Protein Urine Glucose (UA) Urine Ketones Urine Blood Urine Nitrite Ur Leukocyte Esterase Blood Type A NEGATIVE Antibody Screen NEGATIVE Assessment and Plan(PN) - Assessment and Plan (1) Limited care in third trimester Is this a current diagnosis for this admission?: Yes (2) Anemia complicating , third trimester Is this a current diagnosis for this admission?: Yes (3) Intrauterine in teenager Is this a current diagnosis for this admission?: Yes (4) Need for rhogam due to Rh negative mother Is this a current diagnosis for this admission?: Yes (5) Vaginal delivery Is this a current diagnosis for this admission?: Yes - Time Spent with Patient Time with patient: Less than 15 minutes Medications reviewed and adjusted accordingly: Yes - Disposition Anticipated Discharge: Home Within: within 24 hours
[2019-10-02] MEDS: IBUPROFEN 800 MG TABLET PO SCH ×2 (07:55→13:21)
[2019-10-02 08:18] VITALS: BP 103/50
[2019-10-02] MEDS: SENNOSIDES/DOCUSATE 8.6-50 MG 1 EACH TABLET PO SCH (09:57)
[2019-10-02] MEDS: DOCUSATE SODIUM 100 MG CAPSULE PO SCH (09:57)
[2019-10-02] MEDS: FERROUS SULFATE 325 MG TABLET PO SCH (09:57)
[2019-10-02] MEDS: FAMOTIDINE 20 MG TABLET PO SCH (09:57)
[2019-10-02] MEDS: PRENATAL VITAMIN W DHA CAPSULE PO SCH (09:57)
--- NOTE | 2019-10-02 13:51 | PDOC DISCHARGE SUMMARY ---
Impression - Admit/DC Date/PCP Admission Date/Primary Care Provider: 09/30/19 21:40 Discharge Date: 10/02/19 - Discharge Diagnosis (1) Acute blood loss anemia Is this a current diagnosis for this admission?: Yes (2) Drug use affecting Is this a current diagnosis for this admission?: Yes (3) Encounter for care after unplanned out of hospital delivery Is this a current diagnosis for this admission?: Yes (4) Limited care in third trimester Is this a current diagnosis for this admission?: Yes (5) Vaginal delivery Is this a current diagnosis for this admission?: Yes - Assessment Summary: term vaginal delivery pp day 2 stable and ready for discharge. Understands precautions. Declines contraceptives at this time - Additional Information Discharge Diet: As Tolerated, Regular Discharge Activity: Activity As Tolerated, Balance Activity w/Rest, No Lifting Over 10 Pounds, Pelvic Rest, No tub bath, Walk Frequently Referrals: [facility] [Provider Group] Prescriptions: Ibuprofen [Motrin 800 mg Tablet] 800 mg PO Q8HP PRN #20 tablet PRN Reason: Docusate Sodium [Colace 100 mg Capsule] 100 mg PO BID #60 capsule Ferrous Sulfate [Feosol 325 mg Tablet] 325 mg PO BID #60 tablet Home Medications: Pnv No.95/Ferrous Fum/Folic AC [ Formula Tablet] 1 each PO DAILY #1 bot 02/14/19 Docusate Sodium [Colace 100 mg Capsule] 100 mg PO BID #60 capsule 10/02/19 Ferrous Sulfate [Feosol 325 mg Tablet] 325 mg PO BID #60 tablet 10/02/19 Ibuprofen [Motrin 800 mg Tablet] 800 mg PO Q8HP PRN #20 tablet 10/02/19 Results Laboratory Results: WBC 13.8 10^3/uL (4.0-10.5) H 10/01/19 06:24 RBC 3.62 10^6/uL (3.72-5.28) L 10/01/19 06:24 Hgb 10.5 g/dL (12.0-15.5) L D 10/01/19 06:24 Hct 30.7 % (36.0-47.0) L 10/01/19 06:24 MCV 85 fl (80-97) 10/01/19 06:24 MCH 28.9 pg (27.0-33.4) 10/01/19 06:24 MCHC 34.1 g/dL (32.0-36.0) 10/01/19 06:24 RDW 14.1 % (11.5-14.0) H 10/01/19 06:24 Plt Count 192 10^3/uL (150-450) 10/01/19 06:24 Lymph % (Auto) 13.6 % (13-45) 09/30/19 22:00 [place] % (Auto) 5.9 % (3-13) 09/30/19 22:00 Eos % (Auto) 0.3 % (0-6) 09/30/19 22:00 Baso % (Auto) 1.0 % (0-2) 09/30/19 22:00 Absolute Neuts (auto) 9.0 10^3/uL (1.7-8.2) H 09/30/19 22:00 Absolute Lymphs (auto) 1.5 10^3/uL (0.5-4.7) 09/30/19 22:00 Absolute Monos (auto) 0.7 10^3/uL (0.1-1.4) 09/30/19 22:00 Absolute Eos (auto) 0.0 10^3/uL (0.0-0.6) 09/30/19 22:00 Absolute Basos (auto) 0.1 10^3/uL (0.0-0.2) 09/30/19 22:00 Seg Neutrophils % 79.2 % (42-78) H 09/30/19 22:00 Urine Color RED 09/30/19 23:10 Urine Appearance CLOUDY 09/30/19 23:10 Urine pH 8.0 (5.0-9.0) 09/30/19 23:10 Ur Specific [place] 1.015 09/30/19 23:10 Urine Protein 100 mg/dL (NEGATIVE) H 09/30/19 23:10 Urine Glucose (UA) NEGATIVE mg/dL (NEGATIVE) 09/30/19 23:10 Urine Ketones TRACE mg/dL (NEGATIVE) H 09/30/19 23:10 Urine Blood LARGE (NEGATIVE) H 09/30/19 23:10 Urine Nitrite NEGATIVE (NEGATIVE) 09/30/19 23:10 Urine Bilirubin NEGATIVE (NEGATIVE) 09/30/19 23:10 Urine Urobilinogen NEGATIVE mg/dL (<2.0) 09/30/19 23:10 Ur Leukocyte Esterase NEGATIVE (NEGATIVE) 09/30/19 23:10 Urine Ascorbic Acid NEGATIVE (NEGATIVE) 09/30/19 23:10 Urine Opiates Screen NEGATIVE 09/30/19 23:10 Urine Methadone Screen NEGATIVE 09/30/19 23:10 Ur Barbiturates Screen NEGATIVE 09/30/19 23:10 Ur Phencyclidine Scrn NEGATIVE 09/30/19 23:10 Ur Amphetamines Screen NEGATIVE 09/30/19 23:10 U Benzodiazepines Scrn NEGATIVE 09/30/19 23:10 Urine Cocaine Screen NEGATIVE 09/30/19 23:10 U Marijuana (THC) Screen UNCONFIRMED POSITIVE 09/30/19 23:10 RPR NONREACTIVE (NONREACTIVE) 09/30/19 22:00 Chlamydia DNA (PCR) NOT DETECTED (NOT DETECT) 09/30/19 23:10 N.gonorrhoeae DNA (PCR) NOT DETECTED (NOT DETECT) 09/30/19 23:10 Blood Type A NEGATIVE 09/30/19 23:44 Antibody Screen NEGATIVE 09/30/19 23:44
[2019-10-03 08:37] LABS: HEPATITIS C VIRUS AB <0.1 s/co ratio (0.0-0.9)
== END 2019-10-02 18:35 | disposition home or self-care (01) | DRG 776 ==
LOC: LR 21:40 → 2S 10-01 00:02
PROVIDERS: ADMIT Obstetrics & Gynecology; ATTEND Obstetrics & Gynecology
DX: O99.325 Drug use complicating the puerperium (principal); F12.90 Cannabis use, unspecified, uncomplicated; O90.81 Anemia of the puerperium; D64.89 Other specified anemias
CPT/HCPCS: 36415; 59414; 80307; 80349; 81005; 85025; 85027; 86592; 86803; 86804; 86850; 86900; 86901; 87491; 87591; 88307; G0480; J2550; J2590; J3490

== ENCOUNTER 2020-03-31 17:31 | Emergency (ER) | payer MEDICAID, OTHER ==
--- NOTE | 2020-03-31 18:18 | ER Document Report ---
ED Medical Screen (RME) - General Chief Complaint: Abdominal Pain Stated Complaint: ABDOMINAL PAIN,VAGINAL BLEEDING Time Seen by Provider: 03/31/20 18:15 Mode of Arrival: Ambulatory Information source: Patient Notes: 22-year-old female presented to ED for complaint of left pelvic pain vaginal bleeding and possible miscarriage. She states she took home test 3 days ago and it was positive. She states she started bleeding heavily today. She states the pain is only on her left side. She is 3 para 2. She states her last child was born 6 months ago. She states she is B- blood type. Patient is alert oriented respirations regular nonlabored speaking in full sentences. I have greeted and performed a rapid initial assessment of this patient. A comprehensive ED assessment and evaluation of the patient, analysis of test results and completion of medical decision making process will be conducted by an additional ED providers. TRAVEL OUTSIDE OF THE [place] IN LAST 30 DAYS: No - Related Data Allergies/Adverse Reactions: latex Allergy (Verified 10/01/19 03:45) Past Medical History Pulmonary Medical History: Reports: Hx Asthma Renal/ Medical History: Denies: Hx Peritoneal Dialysis Psychiatric Medical History: Reports: Hx Depression Past Surgical History: Reports: Hx Orthopedic Surgery - both knees-arthroscopy - Immunizations Immunizations up to date: Yes Hx Diphtheria, Pertussis, Tetanus Vaccination: Yes Physical Exam - Vital signs Vitals: Temp Pulse Resp BP Pulse Ox 98.5 F 91 20 139/84 H 100 03/31/20 17:37 03/31/20 17:37 03/31/20 17:37 03/31/20 17:37 03/31/20 17:37 Course - Vital Signs Vital signs: Temp Pulse Resp BP Pulse Ox 98.5 F 91 20 139/84 H 100 03/31/20 17:37 03/31/20 17:37 03/31/20 17:37 03/31/20 17:37 03/31/20 17:37
[2020-03-31 19:24] LABS: ABSOLUTE LYMPHOCYTES (AUTO) 1.5 10^3/uL (0.5-4.7); ABSOLUTE MONOCYTES (AUTO) 0.6 10^3/uL (0.1-1.4); ABSOLUTE NEUT (AUTO) 7.2 10^3/uL (1.7-8.2); BASOPHILS % (AUTO) 0.3 % (0-2); EOSINOPHILS % (AUTO) 0.5 % (0-6); HEMOGLOBIN 12.4 g/dL (12.0-15.5); LYMPHOCYTES % (AUTO) 16.1 % (13-45); MEAN CORPUSCULAR HEMOGLOBIN 29.2 pg (27.0-33.4); MEAN CORPUSCULAR HGB CONC 34.4 g/dL (32.0-36.0); MEAN CORPUSCULAR VOLUME 85 fl (80-97); MONOCYTES % (AUTO) 6.1 % (3-13); PLATELET COUNT 255 10^3/uL (150-450); RED BLOOD COUNT 4.23 10^6/uL (3.72-5.28); RED CELL DISTRIBUTION WIDTH 14.3 % (11.5-14.0); TOTAL CELLS COUNTED % (AUTO) 100 %; WHITE BLOOD COUNT 9.4 10^3/uL (4.0-10.5)
--- NOTE | 2020-03-31 19:24 | RADIOLOGY REPORT (SQ) ---
EXAM DESCRIPTION: U/S OB TRANSVAG W/DOPPLER IMAGES COMPLETED DATE/TIME: 03/31/2020 7:01 pm REASON FOR STUDY: Vaginal bleeding left pelvic pain with positive ho COMPARISON: None. TECHNIQUE: Transvaginal static and realtime grayscale images acquired of the pelvis. Additional nehemiah cted spectral and color Doppler images recorded. All images stored on PACs. bHCG: Not available. CLINICAL DATES: Uncertain. LIMITATIONS: None. FINDINGS: FETUS: Single Living intrauterine . ULTRASOUND EGA: 12 weeks 2 days ULTRASOUND MELISSA: 10/11/2020 EFW: Not applicable less than 20 weeks. CRL: 5.75 cm FHR: 178 beats per minute. SURVEY: Too early to assess. AMNIOTIC FLUID: Adequate amount. PLACENTA: Not yet developed due to early gestation. SUBCHORIONIC BLEED: Yes SIZE OF BLEED: 4.3 x 4.3 x 5.1 cm. UTERUS: No masses. No anomalies. CERVICAL LENGTH: 4.3 cm. Closed. RIGHT ADNEXA: Normal ovary with normal vascular flow. 1.7 x 2.2 x 1.5 cm No adnexal free fluid. Prominent adnexal vessels. LEFT ADNEXA: Ovary not seen. No adnexal free fluid. Prominent adnexal vessels. FREE FLUID: None. OTHER: No other significant finding. IMPRESSION: Living intrauterine gestation of 12 weeks 2 days with estimated date of delivery of 10/11. There are prominent adnexal vessels. Does the patient have a history of pelvic congestion syndrome? Trimester of : First trimester - 0 to 13 weeks. TECHNICAL DOCUMENTATION: JOB ID: [id number] 2010 [employer]- All Rights Reserved rev Reading location - IP/workstation name: [email or web address]
[2020-03-31 19:26] LABS: APPEARANCE,URINE SLIGHTLY-CLOUDY; BILIRUBIN,URINE NEGATIVE (NEGATIVE); GLUCOSE, URINE NEGATIVE (NEGATIVE); KETONES,URINE NEGATIVE (NEGATIVE); LEUKOCYTE ESTERASE,URINE NEGATIVE (NEGATIVE); NITRITE,URINE NEGATIVE (NEGATIVE); PROTEIN,URINE 100 mg/dL (NEGATIVE); URINE SPECIFIC GRAVITY 1.026; UROBILINOGEN,URINE NEGATIVE mg/dL (<2.0)
[2020-03-31 19:28] LABS: COLOR,URINE BROWN; TRICHOMONAS, URINE NO /HPF
[2020-03-31 19:37] LABS: ALBUMIN 4.3 g/dL (3.5-5.0); ALKALINE PHOSPHATASE 50 U/L (38-126); ANION GAP 7 (5-19); ASPARTATE AMINO TRANSFERASE 25 U/L (14-36); BILIRUBIN,TOTAL 0.4 mg/dL (0.2-1.3); BLOOD UREA NITROGEN 9 mg/dL (7-20); CALCIUM 9.9 mg/dL (8.4-10.2); CARBON DIOXIDE 26 mmol/L (22-30); CHLORIDE 102 mmol/L (98-107); GLUCOSE 83 mg/dL (75-110); TOTAL PROTEIN 7.4 g/dL (6.3-8.2)
--- NOTE | 2020-03-31 21:20 | ER Document Report ---
ED GI/ - General Chief Complaint: Abdominal Pain Stated Complaint: ABDOMINAL PAIN,VAGINAL BLEEDING Time Seen by Provider: 03/31/20 18:15 Primary Care Provider: [facility] [Provider Group] - Follow up in 3-5 days Mode of Arrival: Ambulatory Notes: Patient is a 19-year-old female, at uncertain gestational with positive home tests that comes emergency department for chief complaint of, vaginal bleeding that started over the past day. She states she has had inte rmittent heavier bleeding with passage of clots. She denies dizziness, lightheadedness, passing out, current pain. She states her daughter was born 6 months ago and she is surprised she is . She has required RhoGam previously. She is not on any daily medications. She denies any past medical history history otherwise. TRAVEL OUTSIDE OF THE [place] IN LAST 30 DAYS: No - Related Data Allergies/Adverse Reactions: latex Allergy (Verified 10/01/19 03:45) Past Medical History - General Information source: Patient - Social History Smoking Status: Never Smoker Drug Abuse: None Lives with: Family Family History: Reviewed & Not Pertinent Patient has homicidal ideation: No Pulmonary Medical History: Reports: Hx Asthma Renal/ Medical History: Denies: Hx Peritoneal Dialysis Psychiatric Medical History: Reports: Hx Depression Past Surgical History: Reports: Hx Orthopedic Surgery - both knees-arthroscopy - Immunizations Immunizations up to date: Yes Hx Diphtheria, Pertussis, Tetanus Vaccination: Yes Review of Systems - Review of Systems Constitutional: No symptoms reported EENT: No symptoms reported Cardiovascular: No symptoms reported Respiratory: No symptoms reported Gastrointestinal: No symptoms reported Genitourinary: No symptoms reported Female Genitourinary: See HPI Musculoskeletal: No symptoms reported Skin: No symptoms reported Hematologic/Lymphatic: No symptoms reported Neurological/Psychological: No symptoms reported Physical Exam - Vital signs Vitals: Temp Pulse Resp BP Pulse Ox 98.5 F 91 20 139/84 H 100 03/31/20 17:37 03/31/20 17:37 03/31/20 17:37 03/31/20 17:37 03/31/20 17:37 - Notes Notes: GENERAL: Alert, interacts well. No acute distress. HEAD: Normocephalic, atraumatic. EYES: Pupils equal, round, and reactive to light. Extraocular movements intact. ENT: Oral mucosa moist, tongue midline. Oropharynx unremarkable. Airway patent. NECK: Full range of motion. Supple. Trachea midline. No lymphadenopathy. LUNGS: Clear to auscultation bilaterally, no wheezes, rales, or rhonchi. No respiratory distress. Non-tender chest wall. HEART: Regular rate and rhythm. No murmur ABDOMEN: Soft, non-tender. Non-distended. EXTREMITIES: Moves all 4 extremities spontaneously. No edema, normal radial and dorsalis pedis pulses bilaterally. No cyanosis. BACK: no cervical, thoracic, lumbar midline tenderness. No saddle anesthesia, normal distal neurovascular exam. Moves all extremities in full range of motion. NEUROLOGICAL: Alert and oriented x3. Normal speech. Cranial nerves II through XII grossly intact. Strength 5/5 in all extremities. PSYCH: Normal affect, normal mood. SKIN: Warm, dry, normal turgor. No rashes or lesions noted. Course - Re-evaluation Re-evalutation: Ultrasound shows intrauterine at 12 weeks and 2 days, subchorionic hemorrhage, possible pelvic congestion syndrome. hCG is elevated. RhoGam is indicated and was given. I discussed with patient at length. She states she actually has an appointment scheduled with [facility] for possible but now that she knows the child is 12 weeks and 2 days she thinks she would not go through with this. I did discuss that there is a possibility that she will have a miscarriage and I discussed the details of this, however I also discussed pelvic rest with her and the recommendations for recovering from subchorionic hemorrhage. Patient also is very familiar with pelvic congestion syndrome and states that essentially everyone in her family has it. She states she will follow-up routinely with [facility] for this. Patient has support of her significant other, patient did states she felt better about the situation after discussion of the details. Discussed return precautions in detail. Patient states understanding and agreement. Stable and well-appearing at time of discharge. - Vital Signs Vital signs: Temp Pulse Resp BP Pulse Ox 97.8 F 91 16 124/79 100 03/31/20 21:45 03/31/20 17:37 03/31/20 21:45 03/31/20 21:45 03/31/20 21:45 - Laboratory Result Diagrams: 03/31/20 18:53 03/31/20 18:53 Laboratory results interpreted by me: 03/31/20 03/31/20 03/31/20 18:53 18:53 18:53 RDW 14.3 H Sodium 135.0 L Creatinine 0.49 L Beta HCG, Quant 128224.00 H Urine Protein 100 H Urine Blood LARGE H Discharge - Discharge Clinical Impression: Vaginal bleeding before 22 weeks gestation Condition: Stable Disposition: HOME, SELF-CARE Additional Instructions: You have a at 12 weeks and 2 days in the uterus. You have a subchorionic hemorrhage as we discussed. The treatment/recommendation is pelvic rest. Avoid lifting/jumping/sexual intercourse for least 5 to 7 days or until cleared by [facility]. Follow-up with [facility] referral listed. Return if you worsen including severe pain, worsening bleeding, dizziness, passing out, or any other concerning or worsening symptoms. Referrals: [facility] [Provider Group] - Follow up in 3-5 days
[2020-03-31 22:43] VITALS: BP 124/79
== END 2020-03-31 22:00 | disposition home or self-care (01) ==
LOC: ER 17:31
DX: O46.91 Antepartum hemorrhage, unspecified, first trimester (principal); Z3A.12 12 weeks gestation of pregnancy
CPT/HCPCS: 99284; 86900; 86901; 36415; 86850; 84702; 85025; 80053; 81001; 76817; 93976; J2790

== ENCOUNTER 2020-05-21 19:34 | Emergency (ER) | payer MEDICAID ==
[2020-05-21 20:17] VITALS: BP 135/70
--- NOTE | 2020-05-21 20:48 | ER Document Report ---
HPI - HPI Patient complains to provider of: Back pain Time Seen by Provider: 05/21/20 20:34 Onset: Other - 3 years Onset/Duration: Worse Quality of pain: Sharp Pain Level: 5 Context: Patient presents complaining of right lower back pain for the past 3 years that worsened over the past 4 days. Patient does state that she recently started walking 4 days ago. Patient denies any recent trauma. Patient denies any urinary retention or incontinence. Patient denies any fever. Patient states she has a history of sciatica and this feels like pain similar to her sciatica that she is had in the past. Associated Symptoms: Other - Right lower back pain Exacerbated by: Movement Relieved by: Denies Similar symptoms previously: Yes Recently seen / treated by doctor: No - ROS ROS below otherwise negative: Yes Systems Reviewed and Negative: Yes All other systems reviewed and negative - CONSTITUTIONAL Constitutional: DENIES: Fever, Chills - NEURO Neurology: DENIES: Weakness - GASTROINTESTINAL Gastrointestinal: DENIES: Nausea - URINARY Urinary: DENIES: Dysuria, Urgency, Frequency - MUSCULOSKELETAL Musculoskeletal: REPORTS: Back Pain - DERM Skin Color: Normal Skin Problems: None Past Medical History - General Information source: Patient - Social History Smoking Status: Current Every Day Smoker Frequency of alcohol use: None Drug Abuse: Marijuana Occupation: None Lives with: Family Family History: Reviewed & Not Pertinent Pulmonary Medical History: Reports: Hx Asthma Renal/ Medical History: Denies: Hx Peritoneal Dialysis Psychiatric Medical History: Reports: Hx Depression Past Surgical History: Reports: Hx Orthopedic Surgery - both knees-arthroscopy - Immunizations Immunizations up to date: Yes Hx Diphtheria, Pertussis, Tetanus Vaccination: Yes Vertical Provider Document - CONSTITUTIONAL Agree With Documented VS: Yes Exam Limitations: No Limitations General Appearance: WD/WN, No Apparent Distress Notes: PHYSICAL EXAMINATION: GENERAL: Well-appearing, well-nourished and in no acute distress. HEAD: Atraumatic, normocephalic. EYES: sclera clear, anicteric, conjunctiva are normal. ENT: nares patent, Moist mucous membranes. NECK: Normal range of motion, supple no lymphadenopathy LUNGS: respirations unlabored HEART: Regular rate and rhythm without murmurs EXTREMITIES: Normal range of motion, no pitting or edema. No cyanosis. Gait normal, pt ambulates without difficulty BACK: Right SI joint tenderness, no midline tenderness, no deformities or step- offs. No CVA tenderness. NEUROLOGICAL: Cranial nerves grossly intact. Normal speech, normal gait. No saddle anesthesia. PSYCH: Normal mood, normal affect. SKIN: Warm, Dry, normal turgor, no rashes or lesions noted. - INFECTION CONTROL TRAVEL OUTSIDE OF THE [place] IN LAST 30 DAYS: No Course - Re-evaluation Re-evalutation: 05/21/20 20:49 Patient with a flareup of her sciatica after starting exercising recently. Patient without any recent traumatic injury. Patient without any midline spinal tenderness. No hip joint tenderness. Patient with right SI joint tenderness. Patient advised that no x-rays will be indicated at this time as she has not had any acute injury that would warrant imaging. Patient advised that she does need to see a primary doctor for referral to orthopedics may consider pain management and physical therapy to help manage her chronic pain symptoms. Patient became agitated stating that we were wasting her time and that she needed to leave so that she could pickling solution maker her child from her mother who is watching the child. Patient told nurse that she did not want a wait for her paperwork and ambulated without difficulty out of the department. - Vital Signs Vital signs: Temp Pulse Resp BP Pulse Ox 98.4 F 74 16 135/70 H 99 05/21/20 20:10 05/21/20 20:10 05/21/20 20:10 05/21/20 20:10 05/21/20 20:10 Discharge - Discharge Clinical Impression: Sciatica Qualifiers: Laterality: right Qualified Code(s): M54.31 - Sciatica, right side Condition: Stable Disposition: HOME, SELF-CARE Instructions: Acetaminophen, Use of Jpto-Spk-Aomwyej Ibuprofen ([facility]), Ice Packs ([facility]), Sciatica ([facility]) Additional Instructions: Return immediately for any new or worsening symptoms Followup with your primary care provider, call tomorrow to make a followup appointment Follow-up with orthopedics for further evaluation, call tomorrow for an appointment Referrals: [facility] [Provider Group] - Follow up as needed [facility] [Provider Group] - Follow up as needed
== END 2020-05-21 20:50 | disposition home or self-care (01) ==
LOC: ER 19:34
DX: M54.31 Sciatica, right side (principal); M54.5 Low back pain; M54.9 Dorsalgia, unspecified; F17.200 Nicotine dependence, unspecified, uncomplicated; J45.909 Unspecified asthma, uncomplicated
CPT/HCPCS: 99282